=== PATIENT | male | born 1995 | race Caucasian/White ===

== ENCOUNTER 2017-06-19 22:10 | Emergency (ER) | payer SELFPAY ==
[2017-06-19 22:18] VITALS: BP 154/86; RESP 16
[2017-06-19] MEDS ORDERED: IBUPROFEN 600 MG TAB PO ONE (22:27)
--- NOTE | 2017-06-19 22:28 | EDPHY ---
H & P Stated Complaint: says he was hit playing hockey, thinks he may have a broken R collar bone Time Seen by Provider: 06/19/17 22:23 HPI/ROS: Chief Complaint: Right shoulder pain HPI: 21-year-old male took a hit to his right shoulder while playing hockey. He had immediate onset of pain in his right collar bone. Has a history of rotator cuff injury in the past. No numbness or weakness. He was placed in a sling by touching staff. Did not hit his head. No loss of conscious. No other complaints at this time. ROS: 10 point Review of Systems is negative except as noted in the HPI. Physical Exam: General: Awake, alert, no acute distress Right shoulder. He has got a tenderness and obvious deformity along his mid right clavicle. There is no bony abnormality of the scapula or his humerus. He has decreased range of motion secondary to pain. Sensations intact over the deltoid. He has sensation intact in the radial, median, and ulnar nerve distribution. He has full flexion extension strength of his forearm. Capillary refills less than 2 sec. He has 2+ radial and ulnar pulses. Skin: No rashes - Medical/Surgical History Hx Asthma: No Hx Chronic Respiratory Disease: No Hx Diabetes: No Hx Cardiac Disease: No Hx Renal Disease: No Hx Cirrhosis: No Hx Alcoholism: No Hx HIV/AIDS: No Hx Splenectomy or Spleen Trauma: No Other PMH: none - Social History Smoking Status: Never smoked Constitutional: Initial Vital Signs Temperature (C) 36.7 C 06/19/17 22:14 Heart Rate 57 L 06/19/17 22:14 Respiratory Rate 16 06/19/17 22:14 Blood Pressure 154/86 H 06/19/17 22:14 O2 Sat (%) 97 06/19/17 22:14 O2 Delivery Mode Room Air Allergies/Adverse Reactions: tree nut [Nuts] Allergy (Verified 06/19/17 22:18) Home Medications: Medication Instructions Recorded NK [No Known Home Meds] 06/19/17 Medical Decision Making - Diagnostics Imaging Results: Imaging Impressions Shoulder X-Ray 06/19/17 22:25 Impression: Comminuted mid right clavicle fracture. Imaging: I viewed and interpreted images myself - Data Points Medications Given: Discontinued Medications Ibuprofen (Motrin) 600 mg PO EDNOW ONE Stop: 06/19/17 22:28 Last Admin: 06/19/17 22:29 Dose: 600 mg Departure - Departure Disposition: Home, Routine, Self-Care Clinical Impression: Clavicle fracture Condition: Good Instructions: Clavicle Fracture (ED), How to Use a Sling (ED) Additional Instructions: Follow up with orthopedic surgery in 3-4 days for further evaluation. Leave your arm in the sling until seen by Orthopedics. Apply ice for 15 min of every hour while awake. You may take 600 mg of ibuprofen 3 times a day. He may also take 1000 mg of acetaminophen every 6 hr. Referrals: Boom Al MD [Medical Doctor] - As per Instructions
[2017-06-19 23:34] VITALS: PULSE 68; TEMP 97.9; O2SAT 98
== END 2017-06-19 23:34 | disposition home or self-care (01) ==
DX: S42.021A Displaced fracture of shaft of right clavicle, initial encounter for closed fracture (principal); W21.00XA Struck by hit or thrown ball, unspecified type, initial encounter; Y93.22 Activity, ice hockey